=== PATIENT | male | born 1955 | race Caucasian/White ===

== ENCOUNTER → 2019-05-09 | Outpatient (CLI) | payer OTHER | LOC: RAD 17:02 | DX: M48.02 Spinal stenosis, cervical region (principal); M47.812 Spondylosis without myelopathy or radiculopathy, cervical region; E78.00 Pure hypercholesterolemia, unspecified ==

== ENCOUNTER → 2019-06-04 | Outpatient (CLI) | payer OTHER | LOC: SJCVCIMAG 15:35 | DX: M54.2 Cervicalgia (principal); E78.00 Pure hypercholesterolemia, unspecified; Z72.89 Other problems related to lifestyle; Z79.82 Long term (current) use of aspirin; Z79.899 Other long term (current) drug therapy; Z88.2 Allergy status to sulfonamides ==